=== PATIENT | female | born 1960 | race African-American/Black ===

== ENCOUNTER → 2017-12-20 | Outpatient (CLI) | payer OTHER ==
[~2017-12-20] MED LIST: GLYCOTROL CAPS1 EACH PO; LIPITOR80 MG PO; MILLIPRED DP5 M1 PO; NABUMETONE750 MG PO; TRAMADOL HCL-AP1 TAB; ZOCOR40 MG
== END | disposition home or self-care (01) ==
LOC: TOM 10:25
DX: K50.012 Crohn's disease of small intestine with intestinal obstruction (principal)

== ENCOUNTER 2018-02-22 13:39 | Outpatient (CLI) | payer OTHER | END 2018-02-22 13:47 | disposition home or self-care (01) | LOC: RAD 13:39 | DX: N20.0 Calculus of kidney (principal) ==

== ENCOUNTER 2018-03-03 15:02 | Outpatient (CLI) | payer OTHER | END 2018-03-03 15:08 | disposition home or self-care (01) | LOC: RAD 15:02 | DX: N20.0 Calculus of kidney (principal) ==

== ENCOUNTER 2018-03-14 14:24 | Outpatient (CLI) | payer OTHER | END 2018-03-14 14:25 | disposition home or self-care (01) | LOC: EKG 14:24 | DX: I10 Essential (primary) hypertension (principal) ==

== ENCOUNTER 2018-03-25 09:43 | Outpatient (CLI) | payer OTHER | END 2018-03-25 09:45 | disposition home or self-care, planned readmission (81) | LOC: RAD 09:43 | DX: N20.0 Calculus of kidney (principal) ==

== ENCOUNTER 2018-03-28 06:49 | Day surgery (SDC) | payer OTHER | END 2018-03-28 09:45 | disposition home or self-care (01) | LOC: CIR LITO 06:49 → CIR.AMB 16:16 → CIR LITO 17:00 | DX: N20.0 Calculus of kidney (principal) ==

== ENCOUNTER 2018-04-05 16:18 | Outpatient (CLI) | payer OTHER | END 2018-04-05 16:29 | disposition home or self-care (01) | LOC: RAD 501 16:18 | DX: N20.0 Calculus of kidney (principal) ==

== ENCOUNTER 2018-05-23 12:37 | Outpatient (CLI) | payer OTHER | END 2018-05-23 12:45 | disposition home or self-care (01) | LOC: RAD 12:37 | DX: D24.1 Benign neoplasm of right breast (principal); Z01.811 Encounter for preprocedural respiratory examination ==

== ENCOUNTER 2018-06-02 07:34 | Day surgery (SDC) | payer OTHER | END 2018-06-02 15:50 | disposition home or self-care (01) | LOC: CIR.AMB 07:34 | DX: D24.1 Benign neoplasm of right breast (principal) ==

== ENCOUNTER 2018-09-26 15:53 | Outpatient (CLI) | payer OTHER | END 2018-09-26 16:02 | disposition home or self-care (01) | LOC: RAD 501 15:53 | DX: I15.8 Other secondary hypertension (principal); I10 Essential (primary) hypertension ==

== ENCOUNTER 2018-09-26 16:22 | Outpatient (CLI) | payer OTHER | END 2018-09-26 16:30 | disposition home or self-care (01) | LOC: EKG 16:22 | DX: R94.31 Abnormal electrocardiogram [ECG] [EKG] (principal) ==

== ENCOUNTER → 2019-02-13 12:51 | Outpatient (CLI) | payer OTHER | END | disposition home or self-care (01) | LOC: LAB 12:51 | DX: E03.8 Other specified hypothyroidism (principal); E11.21 Type 2 diabetes mellitus with diabetic nephropathy; N39.0 Urinary tract infection, site not specified; D64.89 Other specified anemias; E78.2 Mixed hyperlipidemia; E11.65 Type 2 diabetes mellitus with hyperglycemia ==

== ENCOUNTER → 2019-02-13 | Outpatient (CLI) | payer OTHER | END | disposition home or self-care (01) | LOC: RAD 12:03 | DX: M54.12 Radiculopathy, cervical region (principal) ==

== ENCOUNTER 2019-03-02 19:39 | Emergency (ER) | payer OTHER ==
[~2019-03-02] VITALS: Ht 160 cm; Wt 68.9 kg
[2019-03-02] MEDS ORDERED: GABAPENTIN100 MG (19:48)
== END 2019-03-02 21:50 | disposition home or self-care (01) ==
LOC: ER 19:39
DX: M75.51 Bursitis of right shoulder (principal)

== ENCOUNTER 2019-03-09 07:31 | Outpatient (CLI) | payer OTHER ==
[~2019-03-09 07:31] MED LIST changes: +GABAPENTIN100 MG
== END 2019-03-09 07:42 | disposition home or self-care (01) ==
LOC: TOM 07:31
DX: K52.89 Other specified noninfective gastroenteritis and colitis (principal); D50.8 Other iron deficiency anemias; R63.4 Abnormal weight loss; K63.5 Polyp of colon

== ENCOUNTER 2019-04-01 10:23 | Outpatient (CLI) | payer OTHER | END 2019-04-01 10:32 | disposition home or self-care (01) | LOC: RAD 10:23 | DX: I10 Essential (primary) hypertension (principal) ==

== ENCOUNTER 2019-06-27 07:49 | Emergency (ER) | payer OTHER ==
[~2019-06-27] VITALS: Ht 160 cm; Wt 64.9 kg
== END 2019-06-27 11:45 | disposition home or self-care (01) ==
LOC: ER 07:49
DX: S93.492A Sprain of other ligament of left ankle, initial encounter (principal); S93.491A Sprain of other ligament of right ankle, initial encounter; W10.8XXA Fall (on) (from) other stairs and steps, initial encounter; Y93.89 Activity, other specified; Y92.018 Other place in single-family (private) house as the place of occurrence of the external cause; Y99.8 Other external cause status

== ENCOUNTER 2019-07-18 07:45 | Outpatient (CLI) | payer OTHER | END 2019-07-18 07:50 | disposition home or self-care (01) | LOC: NUCLEAR 07:45 | DX: R07.89 Other chest pain (principal); R06.02 Shortness of breath; R94.31 Abnormal electrocardiogram [ECG] [EKG] | CPT/HCPCS: 78452; 93017; A9500; J0153 ==

== ENCOUNTER 2020-01-03 15:02 | Outpatient (CLI) | payer OTHER | END 2020-01-03 15:21 | disposition home or self-care (01) | LOC: RAD 15:02 | DX: I15.8 Other secondary hypertension (principal); I10 Essential (primary) hypertension ==

== ENCOUNTER 2020-01-28 19:26 | Emergency (ER) | payer OTHER ==
[~2020-01-28] VITALS: Ht 160 cm; Wt 59.0 kg
[2020-01-29] MEDS ORDERED: PEPCID40 MG PO (01:08)
[2020-01-29] MEDS ORDERED: MECLIZINE HCL25 MG PO (01:08)
== END 2020-01-29 01:22 | disposition home or self-care (01) ==
LOC: ER 19:26
DX: N39.0 Urinary tract infection, site not specified (principal); K29.60 Other gastritis without bleeding; T39.1X5A Adverse effect of 4-Aminophenol derivatives, initial encounter; Y92.89 Other specified places as the place of occurrence of the external cause

== ENCOUNTER 2020-02-21 09:54 | Outpatient (CLI) | payer OTHER ==
[~2020-02-21 09:54] MED LIST changes: +MECLIZINE HCL25 MG PO; +PEPCID40 MG PO
== END 2020-02-21 10:09 | disposition home or self-care (01) ==
LOC: TOM 09:54
PROVIDERS: ATTEND Internal Medicine Gastroenterology
DX: R10.84 Generalized abdominal pain (principal); K59.09 Other constipation; D50.9 Iron deficiency anemia, unspecified

== ENCOUNTER 2020-04-10 10:09 | Outpatient (CLI) | payer OTHER | END 2020-04-10 10:17 | disposition home or self-care (01) | LOC: TOM 10:09 | PROVIDERS: ATTEND General Practice | DX: G44.201 Tension-type headache, unspecified, intractable (principal); H81.10 Benign paroxysmal vertigo, unspecified ear; G44.221 Chronic tension-type headache, intractable ==

== ENCOUNTER 2020-11-19 11:51 | Outpatient (CLI) | payer OTHER | END 2020-11-19 12:03 | disposition home or self-care (01) | LOC: RAD 11:51 | PROVIDERS: ATTEND Specialist | DX: J45.998 Other asthma (principal) ==

== ENCOUNTER → 2021-03-18 | Outpatient (CLI) | payer OTHER | END | disposition home or self-care (01) | LOC: LAB 08:29 | PROVIDERS: ATTEND General Practice | DX: R10.84 Generalized abdominal pain (principal); K92.1 Melena ==

== ENCOUNTER 2021-03-24 09:08 | Outpatient (CLI) | payer OTHER | END 2021-03-24 09:13 | disposition home or self-care (01) | LOC: TOM 09:08 | PROVIDERS: ATTEND General Practice | DX: K76.0 Fatty (change of) liver, not elsewhere classified (principal); Q44.6 Cystic disease of liver; R10.84 Generalized abdominal pain; K92.1 Melena | CPT/HCPCS: 74177; Q9965 ==

== ENCOUNTER 2021-04-14 15:46 | Outpatient (CLI) | payer OTHER | END 2021-04-14 15:57 | disposition home or self-care (01) | LOC: RAD 15:46 | DX: M25.531 Pain in right wrist (principal); M65.4 Radial styloid tenosynovitis [de Quervain] ==

== ENCOUNTER 2021-06-25 07:49 | Outpatient (CLI) | payer OTHER | END 2021-06-25 07:58 | disposition home or self-care (01) | LOC: TOM 07:49 | PROVIDERS: ATTEND Specialist | DX: G93.89 Other specified disorders of brain (principal); I63.89 Other cerebral infarction ==

== ENCOUNTER 2021-07-04 14:13 | Emergency (ER) | payer OTHER ==
[~2021-07-04] VITALS: Ht 160 cm; Wt 59.9 kg
== END 2021-07-04 19:56 | disposition home or self-care (01) ==
LOC: ER 14:13
DX: K52.9 Noninfective gastroenteritis and colitis, unspecified (principal); E86.0 Dehydration; E87.8 Other disorders of electrolyte and fluid balance, not elsewhere classified; R10.84 Generalized abdominal pain

== ENCOUNTER 2021-08-13 08:16 | Outpatient (CLI) | payer OTHER | END 2021-08-13 08:21 | disposition home or self-care (01) | LOC: TOM 08:16 | PROVIDERS: ATTEND General Practice | DX: Q44.6 Cystic disease of liver (principal); N20.0 Calculus of kidney; K59.09 Other constipation ==

== ENCOUNTER 2021-12-29 13:30 | Emergency (ER) | payer OTHER ==
[~2021-12-29] VITALS: Ht 160 cm; Wt 59.0 kg
[2021-12-29] MEDS ORDERED: CIPROFLOXACIN500 MG PO (21:09)
[2021-12-29] MEDS ORDERED: PYRIDIUM200 MG PO (21:09)
== END 2021-12-29 21:39 | disposition home or self-care (01) ==
LOC: ER 13:30
DX: R30.0 Dysuria (principal)

== ENCOUNTER 2022-01-12 13:04 | Outpatient (CLI) | payer OTHER ==
[~2022-01-12 13:04] MED LIST changes: +CIPROFLOXACIN500 MG PO; +PYRIDIUM200 MG PO
== END 2022-01-12 13:09 | disposition home or self-care (01) ==
LOC: RAD 13:04
PROVIDERS: ATTEND Urology
DX: N20.0 Calculus of kidney (principal)

== ENCOUNTER 2022-01-12 14:22 | Outpatient (CLI) | payer OTHER | END 2022-01-12 14:23 | disposition home or self-care (01) | LOC: LAB 14:22 | PROVIDERS: ATTEND Radiology Diagnostic Radiology | DX: R10.9 Unspecified abdominal pain (principal) ==

== ENCOUNTER 2022-01-15 07:33 | Outpatient (CLI) | payer OTHER | END 2022-01-15 07:35 | disposition home or self-care (01) | LOC: TOM 07:33 | PROVIDERS: ATTEND Internal Medicine Gastroenterology | DX: R10.9 Unspecified abdominal pain (principal); R10.2 Pelvic and perineal pain | CPT/HCPCS: 74177; Q9965 ==

== ENCOUNTER 2022-05-13 17:19 | Emergency (ER) | payer OTHER ==
[~2022-05-13] VITALS: Ht 160 cm; Wt 55.8 kg
[2022-05-13] MEDS ORDERED: KETO10TA2 PO (19:44)
== END 2022-05-13 20:42 | disposition home or self-care (01) ==
LOC: ER 17:19
DX: S52.592A Other fractures of lower end of left radius, initial encounter for closed fracture (principal); W06.XXXA Fall from bed, initial encounter; Y93.89 Activity, other specified; Y92.89 Other specified places as the place of occurrence of the external cause

== ENCOUNTER 2022-05-19 11:23 | Outpatient (CLI) | payer OTHER ==
[~2022-05-19 11:23] MED LIST changes: +KETO10TA2 PO
== END 2022-05-19 11:29 | disposition home or self-care (01) ==
LOC: RAD 11:23
PROVIDERS: ATTEND Orthopaedic Surgery
DX: S83.242A Other tear of medial meniscus, current injury, left knee, initial encounter (principal); Z13.83 Encounter for screening for respiratory disorder NEC

== ENCOUNTER 2022-07-24 13:11 | Outpatient (CLI) | payer OTHER | END 2022-07-24 13:12 | disposition home or self-care (01) | LOC: NUCLEAR 13:11 | PROVIDERS: ATTEND Specialist | DX: M81.0 Age-related osteoporosis without current pathological fracture (principal); Z13.820 Encounter for screening for osteoporosis ==

== ENCOUNTER 2022-08-07 15:23 | Emergency (ER) | payer OTHER ==
[~2022-08-07] VITALS: Ht 157.5 cm; Wt 57.6 kg
== END 2022-08-07 18:07 | disposition home or self-care (01) ==
LOC: ER 15:23
DX: M19.032 Primary osteoarthritis, left wrist (principal)

== ENCOUNTER 2022-08-17 06:15 | Emergency (ER) | payer OTHER ==
[~2022-08-17] VITALS: Ht 152.4 cm; Wt 56.7 kg
== END 2022-08-17 12:56 | disposition home or self-care (01) ==
LOC: ER 06:15
DX: R10.30 Lower abdominal pain, unspecified (principal)

== ENCOUNTER 2022-08-21 10:42 | Emergency (ER) | payer OTHER ==
[~2022-08-21] VITALS: Ht 157.5 cm; Wt 64.4 kg
== END 2022-08-21 15:58 | disposition home or self-care (01) ==
LOC: ER 10:42
DX: R10.30 Lower abdominal pain, unspecified (principal); K52.89 Other specified noninfective gastroenteritis and colitis; N20.0 Calculus of kidney

== ENCOUNTER 2022-11-27 13:33 | Outpatient (CLI) | payer OTHER | END 2022-11-27 13:37 | disposition home or self-care (01) | LOC: RAD 13:33 | PROVIDERS: ATTEND Specialist | DX: J45.991 Cough variant asthma (principal) ==

== ENCOUNTER 2022-12-04 08:02 | Outpatient (CLI) | payer OTHER | END 2022-12-04 08:33 | disposition home or self-care (01) | LOC: TOM 08:02 | PROVIDERS: ATTEND Physical Medicine & Rehabilitation | DX: R10.9 Unspecified abdominal pain (principal); Z12.11 Encounter for screening for malignant neoplasm of colon; K59.00 Constipation, unspecified; D50.9 Iron deficiency anemia, unspecified; R63.0 Anorexia; R63.4 Abnormal weight loss; R10.84 Generalized abdominal pain; K52.9 Noninfective gastroenteritis and colitis, unspecified; D64.9 Anemia, unspecified ==

== ENCOUNTER 2023-02-12 21:30 | Emergency (ER) | payer OTHER ==
[~2023-02-12] VITALS: Ht 157.5 cm; Wt 56.2 kg
[2023-02-12] MEDS ORDERED: ATORVASTATIN CA40 MG PO (21:51)
[2023-02-12] MEDS ORDERED: PEPCID AC20 MG PO (23:38)
== END 2023-02-12 23:47 | disposition home or self-care (01) ==
LOC: ER 21:30
DX: K29.70 Gastritis, unspecified, without bleeding (principal); G30.9 Alzheimer's disease, unspecified; F02.80 Dementia in other diseases classified elsewhere, unspecified severity, without behavioral disturbance, psychotic disturbance, mood disturbance, and anxiety

== ENCOUNTER 2023-04-21 17:58 | Emergency (ER) | payer OTHER ==
[~2023-04-21] VITALS: Ht 160 cm; Wt 68.0 kg
[~2023-04-21 17:58] MED LIST changes: +ATORVASTATIN CA40 MG PO; +PEPCID AC20 MG PO
== END 2023-04-21 19:29 | disposition home or self-care (01) ==
LOC: ER 17:59
DX: R51.9 Headache, unspecified (principal)

== ENCOUNTER 2023-06-21 11:00 | Emergency (ER) | payer OTHER ==
[~2023-06-21] VITALS: Ht 167.6 cm; Wt 62.6 kg
[2023-06-21 12:29] LABS: HEMATOCRIT 37.7 % (36.0-45.00); HEMOGLOBIN 12.9 g/dL (12.0-15.00); MEAN CELL VOLUME 88.9 fL (80.00-100.00); MEAN CORPUSCULAR HEMOGLOBIN 30.5 pg (27.00-32.0); MEAN CORPUSCULAR HGB CONC 34.3 g/dl (32.0-36.0); PLATELET COUNT 202 K/uL (150-450); RED BLOOD COUNT 4.24 M/uL (4.00-6.00); RED CELL DISTRIBUTION WIDTH 13.8 % (11.5-14.5)
[2023-06-21 12:29] LABS: PH,URINE 5.5 (5.0-8.0); URINE APPEARANCE Clear; URINE BILIRRUBIN Negative (NEGATIVE); URINE BLOOD Small; URINE COLOR Yellow; URINE GLUCOSE Negative (NEGATIVE); URINE NITRATE Negative; URINE UROBILINOGEN 0.2 E.U./dl
[2023-06-21 12:58] LABS: CALCIUM 9.5 mg/dL (8.5-10.1); CREATININE SERUM 0.9 mg/dL (0.55-1.02); GFR 63.04; POTASSIUM 4.38 mEq/L (3.5-5.1)
[2023-06-21 13:25] LABS: URINE BACTERIA 3521.4 uL (0.0-1933); URINE EPITHELIAL CELLS 46.8 uL (0.0-38.8); URINE LEUKOCYTE Negative; URINE PROTEIN Trace (NEGATIVE); URINE RBC 24.7 uL (0.0-20.8); URINE WBC 10.9 uL (0.0-23.2)
== END 2023-06-21 14:38 | disposition home or self-care (01) ==
LOC: ER 11:01
PROVIDERS: Emergency Medicine
DX: N39.0 Urinary tract infection, site not specified (principal); R10.9 Unspecified abdominal pain; E78.00 Pure hypercholesterolemia, unspecified
CPT/HCPCS: 36415; 96365; 99284; J1885

== ENCOUNTER 2023-07-13 08:26 | Outpatient (CLI) | payer OTHER | END 2023-07-13 08:35 | disposition home or self-care (01) | LOC: SONOGRAMA 08:26 | PROVIDERS: ATTEND Specialist | DX: N20.0 Calculus of kidney (principal) ==

== ENCOUNTER 2023-08-27 08:22 | Outpatient (CLI) | payer OTHER | END 2023-08-27 08:32 | disposition home or self-care (01) | LOC: MRI 08:22 | PROVIDERS: ATTEND Orthopaedic Surgery | DX: M25.462 Effusion, left knee (principal) | CPT/HCPCS: 73721 ==

== ENCOUNTER 2023-09-30 07:14 | Outpatient (CLI) | payer OTHER | END 2023-09-30 07:24 | disposition home or self-care (01) | LOC: TOM 07:14 | PROVIDERS: ATTEND General Practice | DX: R10.30 Lower abdominal pain, unspecified (principal) | CPT/HCPCS: 74177; Q9965 ==

== ENCOUNTER 2023-10-14 16:22 | Emergency (ER) | payer OTHER ==
[~2023-10-14] VITALS: Ht 152.4 cm; Wt 52.2 kg
[2023-10-14 19:40] LABS: PH,URINE 5.5 (5.0-8.0); URINE APPEARANCE Clear; URINE BILIRRUBIN Negative (NEGATIVE); URINE BLOOD Negative; URINE COLOR Yellow; URINE GLUCOSE Negative (NEGATIVE); URINE LEUKOCYTE Trace; URINE NITRATE Negative; URINE PROTEIN 30 (NEGATIVE)
[2023-10-14 19:40] LABS: HEMATOCRIT 36.7 % (36.0-45.00); HEMOGLOBIN 12.5 g/dL (12.0-15.00); MEAN CELL VOLUME 88.9 fL (80.00-100.00); MEAN CORPUSCULAR HEMOGLOBIN 30.2 pg (27.00-32.0); PLATELET COUNT 171 K/uL (150-450); RED BLOOD COUNT 4.13 M/uL (4.00-6.00); RED CELL DISTRIBUTION WIDTH 13.6 % (11.5-14.5)
[2023-10-14 19:43] LABS: URINE BACTERIA 4285.2 uL (0.0-1933); URINE EPITHELIAL CELLS 40.5 uL (0.0-38.8); URINE RBC 26.1 uL (0.0-20.8); URINE WBC 39.7 uL (0.0-23.2)
[2023-10-14 20:02] LABS: CALCIUM 9.6 mg/dL (8.5-10.1); CREATININE SERUM 0.97 mg/dL (0.55-1.02); GFR 57.82; POTASSIUM 4.02 mEq/L (3.5-5.1)
[2023-10-14] MEDS ORDERED: KETOROLAC TROMETHAMINE 30 MG VIAL IM STA (21:03)
== END 2023-10-14 21:14 | disposition home or self-care (01) ==
LOC: ER 16:23
PROVIDERS: General Practice
DX: J10.1 Influenza due to other identified influenza virus with other respiratory manifestations (principal); Z20.822 Contact with and (suspected) exposure to COVID-19
CPT/HCPCS: 36415; 96372; 99283; J1885

== ENCOUNTER 2024-02-04 10:54 | Outpatient (CLI) | payer OTHER ==
[~2024-02-04 10:54] MED LIST changes: +CRESTOR40 MG PO; +DULOXETINE HCL40 MG; +FUSION PLUS CA1 EACH; +GRALISE600 MG; +HYOSCYAMINE0.125 M2; +NAMENDA10 MG PO; +REMINYL8 MG PO; +ZETIA10 MG
== END 2024-02-04 11:04 | disposition home or self-care (01) ==
LOC: TOM 10:54
PROVIDERS: ATTEND General Practice
DX: R51.9 Headache, unspecified (principal); R42 Dizziness and giddiness

== ENCOUNTER 2024-06-27 14:53 | Emergency (ER) | payer OTHER ==
[~2024-06-27] VITALS: Ht 160 cm; Wt 54.0 kg
[2024-06-27 16:04] VITALS: BP 92/62; O2SAT 95
[2024-06-27] MEDS ORDERED: FAMOTIDINE/PF 20 MG/2 ML VIAL IV ONE (17:00)
[2024-06-27] MEDS ORDERED: 0.9 % SODIUM CHLORIDE 1,000 ML IV ONE (17:00)
[2024-06-27] MEDS ORDERED: BUTALB/ACETAMINOPHEN/CAFFEINE 1 TAB TABLET PO ONE (17:00)
[2024-06-27 17:45] LABS: HEMATOCRIT 39.3 % (36.0-45.00); MEAN CELL VOLUME 90.9 fL (80.00-100.00); PLATELET COUNT 196 K/uL (150-450); RED BLOOD COUNT 4.32 M/uL (4.00-6.00); RED CELL DISTRIBUTION WIDTH 13.8 % (11.5-14.5)
[2024-06-27 18:09] LABS: ALBUMIN 3.6 gm/dL (3.4-5.0); BILIRUBIN TOTAL 0.29 mg/dL (0.3-1.2); CALCIUM 9.4 mg/dL (8.5-10.1); CREATININE SERUM 1.06 mg/dL (0.55-1.02); GFR 52.02; GLOBULINA 4.2 G/DL (2.4-3.5); POTASSIUM 4.48 mEq/L (3.5-5.1); TOTAL PROTEIN 7.8 gm/dL (6.4-8.2)
[2024-06-27 18:27] LABS: URINE APPEARANCE Clear; URINE BILIRRUBIN Negative (NEGATIVE); URINE BLOOD Negative; URINE COLOR Yellow; URINE GLUCOSE Negative (NEGATIVE); URINE LEUKOCYTE Negative; URINE NITRATE Negative; URINE PROTEIN 30 (NEGATIVE); URINE UROBILINOGEN 0.2 E.U./dl
[2024-06-27 18:31] LABS: URINE BACTERIA 589.6 uL (0.0-1933); URINE EPITHELIAL CELLS 29.6 uL (0.0-38.8); URINE RBC 8.2 uL (0.0-20.8); URINE WBC 31.2 uL (0.0-23.2)
[2024-06-27 18:40] LABS: URINE CAST 0.76 uL (0.0-1.40); URINE KETONE 40 (NEGATIVE)
[2024-06-27] MEDS ORDERED: TAMS0.4C PO (20:30)
[2024-06-27] MEDS ORDERED: BUTALB-ACETAMI1 EACH PO (20:30)
== END 2024-06-27 21:00 | disposition home or self-care (01) ==
LOC: ER 14:53
PROVIDERS: General Practice
DX: U07.1 COVID-19 (principal); G30.9 Alzheimer's disease, unspecified; F02.80 Dementia in other diseases classified elsewhere, unspecified severity, without behavioral disturbance, psychotic disturbance, mood disturbance, and anxiety; R10.30 Lower abdominal pain, unspecified; N20.0 Calculus of kidney
CPT/HCPCS: 36415; 71045; 74176; 96365; 96366; 99284; J3490